=== PATIENT | male | born 1985 | race Caucasian/White ===

== ENCOUNTER 2024-03-20 14:23 | Emergency (ER) | payer BC ==
[2024-03-20] MEDS: Sodium Chloride 0.9% 1,000 ML IV ONE ×2 (14:35→15:20)
[2024-03-20] MEDS ORDERED: Sodium Chloride 0.9% 10 ML Syringe FLUSH PRN (14:50)
[2024-03-20 15:12] LABS: BASOPHILS ABSOLUTE AUTO 0.05 10^3/uL (0.00-0.10); BASOPHILS PERCENT AUTO 1.8 % (0.0-1.0); EOSINOPHILS ABSOLUTE AUTO 0.14 10^3/uL (0.10-0.30); EOSINOPHILS PERCENT AUTO 5.1 % (1.0-3.0); HEMATOCRIT 39.8 % (40.0-52.0); HEMOGLOBIN 14.3 g/dL (13.0-17.0); IMMATURE GRAN ABSOLUTE AUTO 0.01 10^3/uL (0.00-0.50); IMMATURE GRAN PERCENT AUTO 0.4 % (0.0-5.0); LYMPHOCYTES PERCENT AUTO 47.1 % (20.0-40.0); MEAN CORPUSCULAR HEMOGLOBIN 34.9 pg (27.0-31.0); MEAN CORPUSCULAR HGB CONC 35.9 g/dL (32.0-36.0); MEAN CORPUSCULAR VOLUME 97.1 fL (82.0-92.0); MEAN PLATELET VOLUME 12.1 fL (7.4-10.4); MONOCYTES ABSOLUTE AUTO 0.15 10^3/uL (0.10-0.80); MONOCYTES PERCENT AUTO 5.4 % (2.0-8.0); NEUTROPHILS ABSOLUTE AUTO 1.11 10^3/uL (2.50-7.00); NEUTROPHILS PERCENT AUTO 40.2 % (50.0-70.0); WHITE BLOOD CELL COUNT,WBC 2.76 10^3/uL (5.00-10.00)
[2024-03-20 15:30] LABS: ALANINE AMINOTRANSFERASE,ALT 66 U/L (14-63); ALBUMIN 3.38 g/dL (3.40-5.00); ALKALINE PHOSPHATASE 137 U/L (46-116); ASPARTATE AMNIOTRANSFERASE,AST 161 U/L (15-37); BILIRUBIN TOTAL 2.3 mg/dL (0.2-1.0); BLOOD UREA NITROGEN,BUN 5 mg/dL (7-18); CALCIUM 8.5 mg/dL (8.7-10.3); CARBON DIOXIDE,CO2 27.1 mmol/L (21.0-32.0); CHLORIDE,CL 102 mmol/L (98-107); CREATININE 0.63 mg/dL (0.51-1.17); GLUCOSE RANDOM 120 mg/dL (70-140); POTASSIUM,K 3.1 mmol/L (3.5-5.1); PROTEIN TOTAL,TP 8.2 g/dL (6.4-8.2); SODIUM,NA 142 mmol/L (136-145)
[2024-03-20 15:41] LABS: ESTIMATED GFR 123 mL/min (>=60)
[2024-03-20] MEDS: HYDROmorphone 1 MG/ML Syringe IVPUSH ONE (15:50)
[2024-03-20] MEDS: Ondansetron 4 MG/2 ML SDV IVPUSH ONE (15:50)
[2024-03-20 16:31] LABS: PLATELET COUNT,PLT 68 10^3/uL (150-400)
[2024-03-20 16:39] LABS: APPEARANCE,URINE SLIGHTLY CLOUDY (CLEAR); COLOR,URINE AMBER (YELLOW); GLUCOSE,URINE NEGATIVE (NEGATIVE); KETONES,URINE TRACE mg/dL (NEGATIVE); LEUKOCYTE ESTERASE,URINE NEGATIVE (NEGATIVE); NITRITE,URINE NEGATIVE (NEGATIVE); OCCULT BLOOD,URINE LARGE (NEGATIVE); PH,URINE 7.5 (5.0-9.0); PROTEIN,URINE 30 mg/dL (NEGATIVE)
[2024-03-20 16:47] LABS: BILIRUBIN,URINE LARGE (NEGATIVE)
[2024-03-20 16:48] LABS: WBC,URINE 0-5 /HPF (0-5)
[2024-03-20 16:49] LABS: BACTERIA,URINE RARE /HPF (NONE TO FEW); EPITHELIAL CELLS,URINE RARE /LPF; RBC,URINE >100 /HPF (0-5)
[2024-03-20 17:54] VITALS: BP 133/84; PULSE 88
== END 2024-03-20 16:45 ==
LOC: KA.ED 14:23
DX: S06.0X0A Concussion without loss of consciousness, initial encounter (principal); S22.41XA Multiple fractures of ribs, right side, initial encounter for closed fracture; S16.1XXA Strain of muscle, fascia and tendon at neck level, initial encounter; S60.221A Contusion of right hand, initial encounter; V00.131A Fall from skateboard, initial encounter; Y93.51 Activity, roller skating (inline) and skateboarding
CPT/HCPCS: 36415; 70450; 71045; 71250; 72125; 74176; 80053; 81001; 84484; 85025; 96361; 96374; 96375; 99285-25; J1170; J2405; J7030; Q3014